=== PATIENT | male | born 1945 | race Caucasian/White ===

== ENCOUNTER 2018-01-03 06:37 | Emergency (ER) | payer MEDICARE, BC ==
[2018-01-03] MEDS ORDERED: SODIUM CHLORIDE 0.9% 1000ML 1,000 ML IV ONE (07:20)
[2018-01-03 07:34] LABS: HEMATOCRIT 42 % (39-53); HEMOGLOBIN 13.8 gm/dl (13.5-17.7); MEAN CORPUSCULAR HEMOGLOBIN 31.3 pg (27.0-32.0); MEAN CORPUSCULAR HGB CONC 32.6 gm/dl (32.0-36.0); MEAN CORPUSCULAR VOLUME 96 fL (80-100)
[2018-01-03 07:52] LABS: BAND NEUTROPHILS % (MANUAL) 9 %; BASOPHILS % (MANUAL) 0 % (0-3); EOSINOPHILS % (MANUAL) 2 % (0-9); LYMPHOCYTES % (MANUAL) 6 % (10-50); MONOCYTES % (MANUAL) 2 % (0-12); NEUTROPHILS % (MANUAL) 81 % (37-80)
[2018-01-03 07:53] LABS: NORMAL RBCS PRESENT
[2018-01-03 08:03] LABS: CALCIUM 9.3 mg/dl (8.5-10.1); CARBON DIOXIDE 30.2 mEq/L (21-32); CREATININE 1.34 mg/dl (0.80-1.30); POTASSIUM 4.6 mMol/L (3.5-5.1)
[2018-01-03 08:07] LABS: APPEARANCE,URINE Clear; BILIRUBIN,URINE NEGATIVE (NEGATIVE); COLOR,URINE Yellow; GLUCOSE, URINE (UA) NEGATIVE (NEGATIVE); KETONES,URINE TRACE (NEGATIVE); LEUKOCYTE ESTERASE ,URINE NEGATIVE (NEGATIVE); NITRATE,URINE NEGATIVE (NEGATIVE); OCCULT BLOOD,URINE TRACE INTACT (NEG-TRACE)
[2018-01-03 08:09] VITALS: RESP 20
[2018-01-03 08:21] LABS: BACTERIA RARE (< 1+); CRYSTALS NEGATIVE (0-3 AVE/HPF); EPITHELIAL CELLS 0-2 (SQUAMOUS); RBC,URINE 0-2 (0-3AV/HPF); WBC,URINE 0-2 (0-5AV/HPF)
[2018-01-03] MEDS ORDERED: ACETAMINOPHEN 325 MG PO ONE (09:24)
[2018-01-03 09:26] VITALS: PULSE 88; O2SAT 99
[2018-01-03] MEDS ORDERED: ACETAMINOPHEN 325 MG ONE (09:28)
[2018-01-03] MEDS ORDERED: SODIUM CHLORIDE 0.9% 500 ML 500 ML IV ONE (10:20)
[2018-01-03 10:43] VITALS: BP 122/64; TEMP 98.3
== END 2018-01-03 11:08 | disposition home or self-care (01) | DRG 641 ==
LOC: ED 06:37
DX: E86.0 Dehydration (principal)
CPT/HCPCS: 70450; 71045; 73502; 80048; 81001; 82962; 85007; 85027; 87040; 93005; 96365; 96366; 99284; 99285

== ENCOUNTER 2018-01-17 20:09 | Emergency (ER) | payer MEDICARE, BC ==
[2018-01-17 21:14] LABS: BASOPHILS % (AUTO) 0 % (0-3); EOSINOPHILS % (AUTO) 0 % (0-9); HEMATOCRIT 34 % (39-53); HEMOGLOBIN 11.5 gm/dl (13.5-17.7); LYMPHOCYTES % (AUTO) 9.7 % (10-50); MEAN CORPUSCULAR HEMOGLOBIN 32.4 pg (27.0-32.0); MEAN CORPUSCULAR HGB CONC 33.9 gm/dl (32.0-36.0); MEAN CORPUSCULAR VOLUME 96 fL (80-100); MONOCYTES % (AUTO) 1.3 % (0-12)
[2018-01-17 21:18] LABS: APPEARANCE,URINE Clear; BILIRUBIN,URINE NEGATIVE (NEGATIVE); COLOR,URINE Light yellow; GLUCOSE, URINE (UA) 2+ (NEGATIVE); KETONES,URINE NEGATIVE (NEGATIVE); LEUKOCYTE ESTERASE ,URINE NEGATIVE (NEGATIVE); NITRATE,URINE NEGATIVE (NEGATIVE); OCCULT BLOOD,URINE NEGATIVE (NEG-TRACE); UROBILINOGEN,URINE 0.2 (0.2-1.0 EU)
[2018-01-17 21:26] LABS: BACTERIA TRACE (< 1+); CRYSTALS NEGATIVE (0-3 AVE/HPF); EPITHELIAL CELLS NEGATIVE (SQUAMOUS); RBC,URINE NEGATIVE (0-3AV/HPF); WBC,URINE NEGATIVE (0-5AV/HPF)
[2018-01-17 21:27] LABS: HEMOGLOBIN A1C 9.2 % (4.8-6.0)
[2018-01-17 21:29] LABS: BILIRUBIN,TOTAL 0.3 mg/dl (0.2-1.0); CALCIUM 9.1 mg/dl (8.5-10.1); CARBON DIOXIDE 28.5 mEq/L (21-32); CREATININE 1.27 mg/dl (0.80-1.30); POTASSIUM 4.8 mMol/L (3.5-5.1); TOTAL PROTEIN 7.1 gm/dl (6.4-8.2)
[2018-01-17] MEDS ORDERED: NOVOLOG FLEXPEN SC SCH (21:30)
[2018-01-17] MEDS ORDERED: INSULIN HUMAN REGULAR 100 U/ML SOL SC ONE (21:33)
[2018-01-17] MEDS ORDERED: INSULIN HUMAN REGULAR 100 U/ML SOL ONE (21:35)
[2018-01-17 22:50] VITALS: BP 138/66; PULSE 55; RESP 20; TEMP 96; O2SAT 97
== END 2018-01-17 22:50 | disposition home or self-care (01) | DRG 639 ==
LOC: ED 20:09
DX: E11.9 Type 2 diabetes mellitus without complications (principal); D47.3 Essential (hemorrhagic) thrombocythemia; D64.9 Anemia, unspecified
CPT/HCPCS: 36415; 80053; 81001; 82962; 83036; 85025; 96372; 99284; 99285; J1815